=== PATIENT | female | born 1955 | race Caucasian/White ===

== ENCOUNTER 2021-10-07 09:52 | Day surgery (SDC) | payer BC ==
[2021-10-06 16:46] LABS: Lymphocytes % 35.7 % (15.3-44.8); MPV 7.8 fL (7.6-11.3)
--- NOTE | 2021-10-06 16:46 | RAD REPORT ---
EXAM DESCRIPTION: RAD - Chest Pa And Lat (2 Views) - 10/06/2021 4:40 pm CLINICAL HISTORY: Pre op Chest pain. COMPARISON: No comparisons FINDINGS: The lungs are mildly emphysematous but clear. The heart is mildly enlarged in size. No dis placed fractures. IMPRESSION: Mild COPD.
[2021-10-06 16:59] LABS: Potassium 3.5 mmol/L (3.5-5.1)
[2021-10-07] MEDS ORDERED: FENTANYL CITR 100 MCG/2 ML ONE (10:17)
[2021-10-07] MEDS ORDERED: MIDAZOLAM HCL 2 MG/2 ML INJ ONE (10:17)
[2021-10-07] MEDS ORDERED: propofoL 200 MG/20 ML VIAL IV ONE (10:17)
[2021-10-07] MEDS ORDERED: LIDOCAINE 2% MPF 5 ML VIAL ONE (10:18)
[2021-10-07] MEDS ORDERED: ONDANSETRON 4 MG/2 ML VIAL ONE (10:24)
[2021-10-07] MEDS ORDERED: BUPIVACAINE 0.5% PF 10 ML VIAL ONE (10:25)
[2021-10-07] MEDS ORDERED: CEFAZOLIN/NS 1gm 1 GM/50 ML BAG ONE (10:35)
[2021-10-07] MEDS ORDERED: Ringers Lactate 1,000 ML IV ONE (10:35)
[2021-10-07 12:06] VITALS: TEMP 97.1
[2021-10-07] MEDS ORDERED: CODEINE 30MG/APAP 300MG TAB ONE (12:55)
[2021-10-07 13:27] VITALS: BP 138/78; O2SAT 97
--- NOTE | 2021-10-07 21:34 | OP ---
Date of Procedure: 10/07/2021 Surgeon: Jordan Gallo MD Mooner: None. Preoerative Diagnosis: Posterior neck mass. Postoperative Diagnosis: Posterior neck mass. Procedure: Wide excision of posterior neck mass, 5 x 2.5 cm, with layered closure. Estimated Blood Loss: Minimal. Specimen: Posterior neck mass. Findings: Likely sebaceous cyst. Anesthesia: General. Complications: None. Disposition: Patient tolerated the proceedure, in stable condition, taken to recovery room in good g eneral condition. Description Of Operative Note: Patient was brought to the OR and placed in supine position. General anesthesia began. Patient was prepped and draped in the usual sterile fashion in the right lateral position. Marcaine 0.5% was infiltrated locally. 15 blade was used to make a 5 x 2.5 cm incision ar ound the cyst with a punctum in the middle. The subcutaneous tissue was divided. The entire cyst wa ll excised, sent to Pathology as specimen. Wound irrigated. Bleeding controlled with cautery. 2-0 chromic was used to approximate the subcutaneous tissue, and 4-0 nylon used to close the skin loosely . Sterile dressing applied. Patient was awakened and taken to recovery room in good general conditi on. Discharge Note: The patient will go to Day Surgery and home when stable. Disposition: Home. Condition: Stable. Discharge Instructions: Resume home medications and diet. Activity as tolerated. No heavy lifting. Remove outer dressing in 2 days. Shower. Keep wound clean and dry. Will follow up in my office i n 2 weeks. Call for appointment. Tylenol No. 3 one tablet p.o. q.4 p.r.n. pain. Cipro 500 mg p.o. q.12. /MODL Voice ID: [id number] Report ID: [id number]
== END 2021-10-07 13:05 | disposition home or self-care (01) ==
LOC: OR 09:52
PROVIDERS: ATTEND Surgery
PROC: 0JB50ZZ Excision of Left Neck Subcutaneous Tissue and Fascia, Open Approach (ICD-10-PCS; principal; 2021-10-07 11:30)
DX: L72.0 Epidermal cyst (principal); Z20.822 Contact with and (suspected) exposure to COVID-19
CPT/HCPCS: 93005; 85025; 80048; 36415; 88304; 71046; 11426; U0003; J2704; J2250; J3010; J0690; J7120; J2405; 88305